=== PATIENT | female | born 2000 | race Caucasian/White ===

== ENCOUNTER 2021-06-12 14:58 | Emergency (ER) | payer OTHER ==
[~2021-06-12] VITALS: Ht 160 cm; Wt 56.8 kg
[2021-06-12 18:46] LABS: INFLUENZA TYPE A NEGATIVE FOR TYPE A (NEGATIVE); INFLUENZA TYPE B NEGATIVE FOR TYPE B (NEGATIVE)
[2021-06-12] MEDS ORDERED: BENZ-70 PO (19:05)
[2021-06-12 19:15] VITALS: BP 142/75
== END 2021-06-12 19:16 | disposition home or self-care (01) ==
LOC: EMS 15:00
DX: B34.9 Viral infection, unspecified (principal)
CPT/HCPCS: 71045; 87804; 99284